=== PATIENT | male | born 1935 | race Caucasian/White ===

== ENCOUNTER 2016-06-14 12:52 | Inpatient (IN) | payer OTHER ==
[~2016-06-14] VITALS: Ht 170.2 cm; Wt 65.4 kg
--- NOTE | 2016-06-14 15:43 | ERD ---
ER Documentation Chief Complaint Date/Time DATE: 06/14/16 TIME: 15:40 Chief Complaint Per family patient fell and hit his head on a coffee table HPI 80-year-old male history of dementia, Parkinson's disease, no anticoagulants who presents with head injury. It appears the patient was trying to walk to the bathroom yesterday evening and fell hitting his head on the coffee table. The patient sustained a superficial laceration to the inner aspect of the pinna of the right ear. There was no witnessed loss of consciousness. The patient has been at his neuro baseline during this timeframe. The patient has no complaints though history is limited given his level of dementia. Unknown tetanus status. The patient presents with his daughter. ROS All systems reviewed and are negative except as per history of present illness. Medications Home Meds Reported Medications Cyanocobalamin* (Vitamin B-12*) 100 Mcg Tablet, 100 MCG PO DAILY, TAB 06/14/16 Cholecalciferol* (Vitamin D3*) 1,000 Unit Tablet, 1000 UNIT PO DAILY, TAB 06/14/16 Aspirin* (Aspirin* (EC)) 81 Mg Tablet.dr, 81 MG PO DAILY, TAB 06/14/16 Rotigotine (NEUPRO) 1 Each Patch.td24, 1 PATCH TD DAILY 06/14/16 Allergies Allergies: Coded Allergies: No Known Allergy (Unverified , 06/14/16) FmHx Family History: No diabetes Physical Exam Vitals Vital Signs Date Time Temp Pulse Resp B/P Pulse Ox O2 Delivery O2 Flow Rate FiO2 06/14/16 13:05 98.2 87 20 128/75 96 Physical Exam Airway is intact Bilateral breath sounds Strong distal pulses No obvious deficits, at neurologic baseline General: Well developed, well nourished, no acute distress, obvious dementia Head: Normocephalic, atraumatic Eyes: Pupils equally reactive, EOM intact ENT: Moist mucous membranes Neck: Supple, no lymphadenopathy, No midline tenderness, deformities, step-offs to the cervical spine, full active and passive range of motion without midline pain. Respiratory: Lungs clear bilaterally, no distress, no chest wall tenderness, no crepitus Cardiovascular: RRR, no murmurs, rubs, or gallops Abdominal: Soft, non-tender, non-distended, no peritoneal signs, pelvis is stable : Deferred MSK: No edema, no unilateral swelling, no midline tenderness deformities or step -offs to the thoracolumbar spine Neurologic: Nonverbal at baseline, limited movement of all extremities, limited exam Skin: No ecchymoses or bruising to the chest or abdomen, the patient has sustained approximately 1.5 cm laceration that is very superficial to the inner aspect of the pinna of the right ear. This is not through and through, no exposed cartilage, early wound healing is noted Psych: Normal mood Result Diagram: 06/14/16191406/14/161914 Results 24 hrs Laboratory Tests Test 06/14/16 19:15 White Blood Count 3.910^3/ul Red Blood Count 4.2610^6/ul Hemoglobin 12.3g/dl Hematocrit 37.4% Mean Corpuscular Volume 87.8fl Mean Corpuscular Hemoglobin 28.9pg Mean Corpuscular Hemoglobin Concent 32.9g/dl Red Cell Distribution Width 13.9% Platelet Count 77469^3/UL Mean Platelet Volume 10.9fl Neutrophils % 62.4% Lymphocytes % 24.9% Monocytes % 10.4% Eosinophils % 1.5% Basophils % 0.3% Nucleated Red Blood Cells % 0.0/100WBC Neutrophils # 2.510^3/ul Lymphocytes # 1.010^3/ul Monocytes # 0.410^3/ul Eosinophils # 0.110^3/ul Basophils # 0.010^3/ul Nucleated Red Blood Cells # 0.010^3/ul Prothrombin Time 13.9Sec Prothrombin Time Ratio 1.1 INR International Normalized Ratio 1.07 Activated Partial Thromboplast Time 27.5Sec Sodium Level 140mmol/L Potassium Level 3.6mmol/L Chloride Level 108mmol/L Carbon Dioxide Level 24mmol/L Anion Gap 12 Blood Urea Nitrogen 17mg/dl Creatinine 0.70mg/dl Glucose Level 82mg/dl Calcium Level 8.7mg/dl Current Medications Medications (Trade) Dose Ordered Sig/Corinna Route PRN Reason Start Time Stop Time Status Last Admin Dose Admin Diphtheria/ Tetanus/Acell Pertussis (Adacel) 0.5 ml ONCE ONCE IM* 06/14/16 16:00 06/14/16 16:01 DC 06/14/16 15:59 Lidocaine (Xylocaine 1% (Mdv) 20 ml) 20 ml ONCE ONCE SC 06/14/16 16:00 06/14/16 16:01 DC Ondansetron HCl (Zofran Inj) 4 mg BRIDGE ORDER PRN IV NAUSEA AND/OR VOMITING 06/14/16 20:00 06/15/16 19:59 Acetaminophen (Tylenol Tab) 650 mg ER BRIDGE PRN PO MILD PAIN/FEVER 06/14/16 20:00 06/15/16 19:59 Procedures/MDM EKG, MONITORS, & DIAGNOSTIC IMAGING: CT brain: IMPRESSION: 1. Moderate age related cerebral volume loss. Moderate small vessel ischemic changes. 2. Mild to moderate atherosclerotic vascular calcification. 3. Probable subdural hygroma, or chronic subdural hematoma over the left parietal convexity, up to 5 mm. Shift of midline structures to the right up to 6 mm. 4. No acute intracranial bleed. RPTAT: PP CT cervical spine: No acute fracture X-ray right shoulder: I reviewed and interpreted multiple views of the x-ray Bones: No evidence of acute fracture dislocation or subluxation Soft tissue: No evidence of foreign body PROCEDURE: Laceration Note: The patient was verbally consented prior to procedure and understands the risks , benefits, and alternatives. The patient is agreeable to procedure and has given verbal consent. Length: 1.5 cm to the right ear Irrigation: Thorough irrigation was performed with pressure is normal saline Inspection: There is no evidence of deep tissue or structural injury, no evidence of foreign bodies Anesthesia: 1% lidocaine without epinephrine approximately 3 cc Repair: Single-layer repair using 5. 0 Prolene a total of 4 sutures with good approximation A clean dressing was applied. The patient tolerated the procedure well with no complications. MEDICAL DECISION MAKING: Clear description of mechanical fall. No evidence of syncope, arrhythmia, stroke. The patient is at his neurologic baseline. The patient has a very superficial laceration to the pinna of the ear. This appears to be healing by secondary intention already. It does not approximate, no exposed cartilage. Laceration repaired as documented above. Thorough wound irrigation, tetanus update will be provided. Healing by secondary intention would be appropriate. Wound care discussion provided. Given the patient's age, limited exam CT imaging of the head and cervical spine will be obtained. The patient's daughter wants an x-ray of the right shoulder which will be obtained with full active and passive range of motion of the shoulder is noted. ER COURSE: Patient continues to be well-appearing. Wound care discussed. Suture removal discussed. Suture removal in 7-[address] imaging shows evidence of hygroma versus chronic subdural hematoma. However there is documentation of possible midline shift. I was able to speak to the neurosurgeon carbonator, Dr. José. He states that given the possible shift he would recommend inpatient observation, evaluation in the morning. Again, this is mostly subacute. Patient does not require close observation in telemetry or ICU. I kept the patient and/or family informed of laboratory and diagnostic imaging results throughout the emergency room course. DISPOSITION PLAN: Medical surgical floor admission for observation of possible subacute subdural hematoma Accepting care team and consultations: I discussed the current laboratory data, diagnostic imaging and emergency care provided. Admitting team: Dr. Morris Admitting team indication: Insurance directed, regal Consulting services: Neurosurgery, Dr. José Departure Diagnosis: Primary Impression: Laceration of right ear, external Encounter type: initial encounter Qualified Code: S01.311A - Laceration of right ear, external, initial encounter Additional Impressions: Closed head injury Encounter type: initial encounter Qualified Code: S09.90XA - Closed head injury, initial encounter Encephalopathy chronic Chronic subdural hematoma Condition: Stable ROCAEL VILLASENOR MD Jun 14, 2016 15:43
[2016-06-14] MEDS ORDERED: LIDOCAINE 1% (MDV) 20 ML INJ SC ONE (16:00)
[2016-06-14] MEDS ORDERED: DIPHTH/TET/ACEL PERTUSS (ADULT) 0.5 ML VIAL IM* ONE (16:00)
[2016-06-14] MEDS ORDERED: CYAN100T PO (16:17)
[2016-06-14] MEDS ORDERED: ROTI1PAT7 TD (16:17)
[2016-06-14] MEDS ORDERED: ASPI-664 PO (16:17)
[2016-06-14] MEDS ORDERED: CHOL100062 PO (16:17)
--- NOTE | 2016-06-14 16:46 | RADRPT ---
PROCEDURE: XR Shoulder. CLINICAL INDICATION: Shoulder pain TECHNIQUE: Three views of the right shoulder are available for review. COMPARISON: None available FINDINGS: The humeral head is located. Mild moderate AC joint arthrosis. Bone mineral density is decreased. There is no acute osseous or articular abnormality. No evidence for fracture. The visualized porti ons of the right lung are clear . IMPRESSION: 1. No acute osseous abnormality. 2. Mild to moderate AC joint arthrosis. RPTAT: QQ .Joe Ellis MD, MD Date Time Electronically viewed and signed by .Joe Ellis MD, MD on 06/14/2016 16:46 .d/
--- NOTE | 2016-06-14 18:23 | RADRPT ---
PROCEDURE: CT thoracic Spine without contrast. CLINICAL INDICATION: Trauma, pain TECHNIQUE: Multiple axial images through the thoracic spine with coronal and sagittal reformats we re obtained without contrast. The calculated radiation dose measures 955 mGy centimeters. The CTDI m easures 22 mGy COMPARISON: No prior studies are available for comparison. FINDINGS: There is a mild thoracic dextroscoliosis. There is exaggeration of the normal upper thoracic kyphos is. 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 There is no bone destruction or sclerosis. There is no dislocation or fracture. There is mild to moderate disk space narrowing through the upper and mid thoracic spine. There is a minimal left paracentral disk osteophyte complex at T8-T9. There are minimal disk osteophyte compl exes at T6-T7 and T7-T8. There are minimal facet hypertrophic changes through the mid and lower tho racic spine.. There is no significant bony central canal stenosis. There is mild appearing right fo raminal narrowing at T4-T5. There is bibasilar atelectasis. There are hepatic and renal cysts. IMPRESSION: 1. Increased upper thoracic kyphosis and mild dextroscoliosis. 2. No visualized acute fracture or dislocation. 3. Minimal disk osteophyte complexes in the mid thoracic spine. Minimal facet hypertrophy in the m id and lower thoracic spine. 4. No significant bony central canal stenosis. Mild appearing right foraminal narrowing at T4-T5. RPTAT: PP .Juan Glez MD, Date Time Electronically viewed and signed by .Juan Glez MD, MD on 06/14/2016 18:23 .T/
--- NOTE | 2016-06-14 18:34 | RADRPT ---
PROCEDURE: CT Head without contrast. CLINICAL INDICATION: Trauma, pain TECHNIQUE: Continuous axial CT images were obtained from the base of skull to the vertex. No cont rast was administered. The calculated radiation dose measures 810 mGy centimeters. The CTDI measures 45 mGy COMPARISON: No prior studies are available for comparison. FINDINGS: There is moderate diffuse cerebral volume loss. The ventricles are symmetric and normal in configur ation. Midline structures are shifted to the right up to 6 mm. There is medial displacement of cortical ve ins awake of the calvarium over the left parietal convexity, likely reflecting a small subdural hygr carmen, or chronic hematoma. This measures up to 5 mm. There are scattered areas of decreased attenuation in the supratentorial white matter, consistent wi th moderate small vessel ischemic changes. There is mild to moderate atherosclerotic vascular calcif ication. The bony calvarium is intact. The orbital soft tissue contents are unremarkable. Paranasal sinuses appear clear. IMPRESSION: 1. Moderate age related cerebral volume loss. Moderate small vessel ischemic changes. 2. Mild to moderate atherosclerotic vascular calcification. 3. Probable subdural hygroma, or chronic subdural hematoma over the left parietal convexity, up to 5 mm. Shift of midline structures to the right up to 6 mm. 4. No acute intracranial bleed. RPTAT: PP .Juan Glez MD, Date Time Electronically viewed and signed by .Juan Glez MD, on 06/14/2016 18:34 .T/
[2016-06-14 19:26] LABS: ADD SCAN DIFF NO
[2016-06-14 19:28] LABS: BASOPHILS % 0.3 % (0.0-2.0); EOSINOPHILS # 0.1 10^3/ul (0.0-0.5); EOSINOPHILS % 1.5 % (0.0-7.0); HEMATOCRIT 37.4 % (42.0-52.0); HEMOGLOBIN 12.3 g/dl (14.0-18.0); LYMPHOCYTES % 24.9 % (15.0-51.0); MEAN CORPUSCULAR HEMOGLOBIN 28.9 pg (29.0-33.0); MEAN CORPUSCULAR HGB CONC 32.9 g/dl (32.0-37.0); MEAN CORPUSCULAR VOLUME 87.8 fl (82.0-101.0); MEAN PLATELET VOLUME 10.9 fl (7.4-10.4); MONOCYTE # 0.4 10^3/ul (0.3-0.9); MONOCYTES % 10.4 % (0.0-11.0); NEUTROPHIL # 2.5 10^3/ul (1.6-7.5); NEUTROPHILS % 62.4 % (39.0-77.0); PLATELET COUNT 134 10^3/UL (140-415); RED BLOOD COUNT 4.26 10^6/ul (4.70-6.10); RED CELL DISTRIBUTION WIDTH 13.9 % (11.5-14.5); WHITE BLOOD COUNT 3.9 10^3/ul (4.8-10.8)
[2016-06-14 19:38] LABS: POTASSIUM 3.6 mmol/L (3.5-5.1)
[2016-06-14 19:40] LABS: INR 1.07; PROTIME 13.9 Sec (12.2-14.2); PT RATIO 1.1
[2016-06-14 19:41] LABS: CREATININE 0.7 mg/dl (0.61-1.24); PARTIAL THROMBOPLASTIN TIME 27.5 Sec (25.0-35.0)
[2016-06-14 19:42] LABS: CALCIUM 8.7 mg/dl (8.4-10.2)
[2016-06-14] MEDS ORDERED: ACETAMINOPHEN 325 MG TAB PO PRN ×2 (20:00→23:00)
[2016-06-14] MEDS ORDERED: ONDANSETRON 4 MG INJ IV PRN (20:00)
[2016-06-14 20:12] VITALS: PULSE 76
[2016-06-14 21:58] VITALS: Ht 170.2 cm; Wt 65.4 kg
[2016-06-14] MEDS ORDERED: HYDROCODONE/APAP (5/325) TAB PO PRN (23:00)
[2016-06-14] MEDS ORDERED: ONDANSETRON 4 MG TAB PO PRN (23:00)
[2016-06-14] MEDS ORDERED: NACL 0.9% 3 ML SYG IV SCH (23:00)
[2016-06-14] MEDS ORDERED: DOCUSATE SODIUM 100 MG CAP PO PRN (23:00)
[2016-06-14] MEDS: FAMOTIDINE 20 MG TAB PO SCH (23:25)
[2016-06-15 05:30] LABS: ADD SCAN DIFF NO
[2016-06-15 05:44] LABS: POTASSIUM 3.3 mmol/L (3.5-5.1)
[2016-06-15 05:45] LABS: EOSINOPHILS # 0.1 10^3/ul (0.0-0.5); EOSINOPHILS % 2.4 % (0.0-7.0); HEMOGLOBIN 12.6 g/dl (14.0-18.0); LYMPHOCYTES # 0.9 10^3/ul (0.8-2.9); LYMPHOCYTES % 27.5 % (15.0-51.0); MEAN CORPUSCULAR HEMOGLOBIN 28.6 pg (29.0-33.0); MEAN CORPUSCULAR HGB CONC 33.2 g/dl (32.0-37.0); MEAN CORPUSCULAR VOLUME 86.4 fl (82.0-101.0); MEAN PLATELET VOLUME 10.6 fl (7.4-10.4); MONOCYTE # 0.3 10^3/ul (0.3-0.9); MONOCYTES % 9.7 % (0.0-11.0); NEUTROPHILS % 60.1 % (39.0-77.0); PLATELET COUNT 122 10^3/UL (140-415); RED CELL DISTRIBUTION WIDTH 13.8 % (11.5-14.5); WHITE BLOOD COUNT 3.3 10^3/ul (4.8-10.8)
[2016-06-15 05:47] LABS: CREATININE 0.76 mg/dl (0.61-1.24)
[2016-06-15 05:48] LABS: CALCIUM 8.8 mg/dl (8.4-10.2)
[2016-06-15 05:51] LABS: PHOSPHORUS 2.9 mg/dl (2.5-4.9)
[2016-06-15] MEDS ORDERED: POTASSIUM CHLORIDE (SR) 20 MEQ TAB PO STA (06:32)
[2016-06-15 06:50] LABS: T3 UPTAKE 38.6 % (23.5-40.5)
[2016-06-15 07:19] VITALS: BP 117/74; RESP 18
[2016-06-15] MEDS: [UNRECOGNIZED DRUG - OTHER] XX SCH ×3 (07:49→23:26)
[2016-06-15] MEDS: FAMOTIDINE 20 MG TAB PO SCH ×2 (08:39→20:21)
[2016-06-15] MEDS: CYANOCOBALAMIN 100 MCG TAB PO SCH (08:39)
[2016-06-15] MEDS: CHOLECALCIFEROL 1,000 UNIT TAB PO SCH (08:40)
[2016-06-15] MEDS ORDERED: ROTIGOTINE TD SCH (09:00)
[2016-06-15] MEDS ORDERED: ASPIRIN (EC) 81 MG TAB PO SCH (09:00)
[2016-06-15 13:53] LABS: ADD SCAN DIFF NO
[2016-06-15 14:01] LABS: BASOPHILS % 0.3 % (0.0-2.0); EOSINOPHILS # 0.1 10^3/ul (0.0-0.5); EOSINOPHILS % 1.6 % (0.0-7.0); HEMATOCRIT 36.3 % (42.0-52.0); HEMOGLOBIN 12.2 g/dl (14.0-18.0); LYMPHOCYTES # 0.7 10^3/ul (0.8-2.9); LYMPHOCYTES % 22.3 % (15.0-51.0); MEAN CORPUSCULAR HEMOGLOBIN 28.7 pg (29.0-33.0); MEAN CORPUSCULAR HGB CONC 33.6 g/dl (32.0-37.0); MEAN CORPUSCULAR VOLUME 85.4 fl (82.0-101.0); MEAN PLATELET VOLUME 10.7 fl (7.4-10.4); MONOCYTE # 0.3 10^3/ul (0.3-0.9); MONOCYTES % 9.2 % (0.0-11.0); NEUTROPHILS % 66.3 % (39.0-77.0); PLATELET COUNT 127 10^3/UL (140-415); RED BLOOD COUNT 4.25 10^6/ul (4.70-6.10); RED CELL DISTRIBUTION WIDTH 13.4 % (11.5-14.5); WHITE BLOOD COUNT 3.1 10^3/ul (4.8-10.8)
[2016-06-15 14:04] LABS: POTASSIUM 3.7 mmol/L (3.5-5.1)
[2016-06-15 14:06] LABS: CREATININE 0.77 mg/dl (0.61-1.24)
[2016-06-15 14:07] LABS: CALCIUM 8.7 mg/dl (8.4-10.2)
--- NOTE | 2016-06-15 14:17 | HP ---
DATE OF ADMISSION: 06/14/2016 CHIEF COMPLAINT ON ADMISSION: Status post fall with possible head injury. HISTORY OF PRESENT ILLNESS: This is a 80-year-old male with dementia, Parkinson's disease, benign p rostatic hypertrophy and apparently has been having episodes of fall at home, increasingly unsteady, needs some assistance with ambulation, but not even able to use a walker because he is having a tiffanie d time coordinating, who was brought into the emergency department by family after the patient fell 24 hours prior. According to the daughter at bedside, the patient did fall 24 hours prior to presen tation and did hit his head on the coffee table. She reports that he has fallen multiple times befo re, but never had a head injury that they witnessed. Apparently, the fall was mechanical. The marlene ent was attempting to ambulate with the help of his 81-year-old and either he was too heavy for her or he did lose his balance, it is unclear, but the patient ended up falling. He did not lose c onsciousness. In the emergency department, he had a CAT scan of the brain that showed a probable hidalgo bdural hygroma or chronic subdural hematoma over the left parietal convexity, shift of midline struc ture to right up to 6 mm. No signs of acute intracranial bleed. Because of the midline shift, they talked to neurosurgery, Dr. José, who recommended for the patient to be kept overnight for obser vation. Given the fact that the family is reporting loss of balance versus gait abnormalities, we w ill obtain an MRI to complete the workup, but most likely his gait abnormalities may be related to t he Parkinson's. He is also noted to have a foul-smelling urine. Therefore, UA and urine culture ball ve been sent. Otherwise, the patient himself is mostly nonverbal, and he is being fed by the [facility] at this point. Per daughter, there is no report of fevers, chills, coughing, diarrhea, constipat ion. The patient's mental status is very close to his unfortunate recent baseline. Physical therap y has been ordered for safety evaluation. ALLERGIES: NO KNOWN ALLERGIES. PAST MEDICAL HISTORY: 1. Dementia. 2. Parkinson's disease. 3. Benign prostatic hypertrophy. PAST SURGICAL HISTORY: The patient had remotely abdominal versus inguinal hernia repair. SOCIAL HISTORY: The patient lives at home with his . No history of smoking or alcohol use. REVIEW OF SYSTEMS: Unable to obtain from patient. Most of the information obtained from daughter a t bedside. OUTPATIENT MEDICATIONS: 1. Aspirin 81 mg p.o. daily. 2. Rotigotine 1 patch transdermally daily. 3. Vitamin D3 1000 units p.o. daily. 4. Vitamin B12 100 mcg p.o. daily. PHYSICAL EXAMINATION: VITAL SIGNS: Temperature is 98.4, heart rate of 78, respiratory rate of 18, blood pressure is 117/7 4. The patient is satting 96% on room air. GENERAL: He is alert and oriented x2 at least. He is nonverbal currently, but recognizes family me mbers and follows simple commands. HEENT: Pupils are equally round and reactive to light. Extraocular muscles are intact. Anicteric sclerae. He is noted to have a laceration to his right ear. This is post fall. Sutures are in ry ce. HEART: Regular rate and rhythm. No murmur, rubs, or gallops. LUNGS: Clear to auscultation bilaterally. ABDOMEN: Soft, nontender, nondistended. Bowel sounds are present. EXTREMITIES: No edema, clubbing, or cyanosis. NEUROLOGIC: Very limited exam. The patient is currently in bed, having lunch. We will order physi becky therapy. LABORATORY DATA: White blood cell count is 3.3, hemoglobin 12.6, hematocrit 38.0, platelet count of 122. Chemistry with a sodium of 142, potassium 3.3, chloride 107, bicarbonate 27, BUN 13, creatini ne 0.76, glucose of 99, calcium of 8.8, phosphorus 2.9, magnesium 2.0. Thyroid function testing wit hin normal. INR is 1.07, PT 13.9, PTT 27.5. RADIOLOGICAL DATA: 1. CAT scan of the brain did show no acute intracranial bleed, probable subdural hygroma or chronic subdural hematoma over the left parietal convexity up to 5 mm with a shift of the midline structure to the right up to 6 mL. CAT scan of the thoracic spine shows no acute findings. No acute fractur e or dislocation. 2. X-ray shoulder, right, shows no acute osseous abnormality, mild to moderate AC joint arthrosis. EKG was not done. ASSESSMENT AND PLAN: This is a 80-year-old male with: 1. Status post fall with findings of a subdural hematoma that actually seems to be chronic, possibl y even hygroma at this point. Likely resultant of this fall, but due to the finding of a midline sh ift, apparently neurosurgery, Dr. José, was consulted in the emergency department, has recommende d for observation on med/surg. MRI of the brain has been ordered for today and will follow up with Dr. José when it comes to discharge planning. Physical therapy has been ordered for safety. Con geenaue to monitor. I will discontinue his aspirin for now. Benign prostatic hypertrophy. Continue outpatient medication. However, I do not see anything listed. Will check a UA and urine culture ba sed on the report of foul-smelling urine. 2. Parkinson's disease. Continue outpatient medications. 3. Dementia. Continue reorientation according to the family, the patient seems to be close to base line and will also check an MRI of the brain and also physical therapy evaluation for safety. 4. Prophylaxis. SCDs to lower extremities for DVT prophylaxis and Pepcid for GI prophylaxis. DISPOSITION: The patient is to be kept on observation. MRI of the brain is pending. Additional wo rkup will be done as needed and discharge planning for tomorrow morning at the latest. Dictated By: HARMAN DORSEY/ROSS Conf#: [id number] DID#: [id number]
--- NOTE | 2016-06-15 16:25 | RADRPT ---
PROCEDURE: MRI Brain without contrast. CLINICAL INDICATION: Chronic head injury with weakness TECHNIQUE: An MRI of the brain was performed on a high resolution hi-definition 3.0 Ksenia MRI scan ner utilizing the following sequences: Sagittal and axial T1 weighted, axial T2 weighted, axial T2 G RE axial diffusion weighted with ADC mapping, coronal GRE, and axial FLAIR. COMPARISON: CT brain 06/14/2016 FINDINGS: Motion artifact is present which degrades the optimal quality of the study. The scalp and calvarium are normal. The visualized orbits are normal. The bilateral paranasal sinus es, mastoid air cells, and middle ear cavities are clear. Again noted is a chronic CSF isointense on all sequences left holohemispheric subdural hematoma or hygroma. This measures a maximum thickne ss of 6 mm. 8 mm left to right midline shift is present. Prominence of the ventricles, sulci and c isterns are noted compatible with moderate diffuse volume loss. On the FLAIR and T2-weighted sequen la, punctate foci of hyperintensity are present in the bilateral centrum semiovale and periventricu lar white matter, the left cerebral peduncle all compatible with mild chronic microvascular ischemic disease. No evidence for acute hemorrhage is present. No diffusion weighted abnormalities are seen to suggest the presence of acute ischemia or recent infarct. No hypointense signal abnormalities a re seen on the GRE images to suggest the presence of blood degradation products. Normal flow voids are visible in the proximal intracranial arteries and dural sinuses, indicating patency. IMPRESSION: 1. No evidence for acute infarcts, hemorrhage, or acute intracranial pathology. 2. Chronic 6 mm left holohemispheric subdural hygroma or hematoma. 3. Runh-tj-zenac 8 mm midline transcerebral herniation 4. Mild chronic microvascular ischemic disease and moderate diffuse volume loss. RPTAT: HDC .Felicita Olguin MD, MD Date Time Electronically viewed and signed by .Felicita Olguin MD, MD on 06/15/2016 16:25 .C/
--- NOTE | 2016-06-15 17:29 | QN ---
Documentation Comment I was asked to consult on this patient by Dr. Obrien in the ED for chronic hygroma and midline shift. I reviewed the CT and MRI and do not see any evidence of any acute intracranial pathology, nor is there significant chronic hygroma or subdural. There is pronounced atrophy. The patient is demented at baseline and Parkinsonian. No active neurosurgical issues. No indications for neurosurgical intervention and no contraindication to discharge home or other placement as determined by primary team. I recommend neurology evaluation if there are any other 'neuro' questions. Thank you. SYED LEE MD Jun 15, 2016 17:29
[2016-06-15 19:00] VITALS: BP 120/68; RESP 18
[2016-06-15] MEDS: BRIMONIDINE 0.2%-TIMOLOL 0.5% 5ML OPH BOTH EYES SCH (20:21)
[2016-06-16 01:11] LABS: ADD UMIC NO; URINE BILIRUBIN (Dip) NEGATIVE (NEGATIVE); URINE BLOOD (Dip) NEGATIVE (NEGATIVE); URINE COLOR LT. YELLOW (YELLOW); URINE GLUCOSE (Dip) NEGATIVE (NEGATIVE); URINE KETONES (Dip) NEGATIVE (NEGATIVE); URINE LEUKOCYTE ESTERASE (Dip) NEGATIVE (NEGATIVE); URINE NITRITE (Dip) NEGATIVE (NEGATIVE); URINE TOTAL PROTEIN (Dip) NEGATIVE (NEGATIVE); URINE UROBILINOGEN (Dip) 1.0 E.U./dL (0.1-1.0)
[2016-06-16 07:16] LABS: POTASSIUM 3.7 mmol/L (3.5-5.1)
[2016-06-16 07:18] LABS: CREATININE 0.73 mg/dl (0.61-1.24)
[2016-06-16 07:19] LABS: CALCIUM 8.9 mg/dl (8.4-10.2)
[2016-06-16 07:27] VITALS: BP 119/78; RESP 22
[2016-06-16] MEDS: [UNRECOGNIZED DRUG - OTHER] XX SCH (08:00)
[2016-06-16] MEDS: CHOLECALCIFEROL 1,000 UNIT TAB PO SCH (09:33)
[2016-06-16] MEDS: CYANOCOBALAMIN 100 MCG TAB PO SCH (09:33)
[2016-06-16] MEDS: FAMOTIDINE 20 MG TAB PO SCH ×2 (09:33→20:06)
[2016-06-16] MEDS: BRIMONIDINE 0.2%-TIMOLOL 0.5% 5ML OPH BOTH EYES SCH ×2 (09:33→20:07)
--- NOTE | 2016-06-16 12:11 | PN ---
Date/Time of Note Date/Time of Note DATE: 06/16/16 TIME: 11:45 Assessment/Plan VTE Prophylaxis VTE Prophylaxis Intervention: SCD's Lines/Catheters IV [facility] Saline Lock Assessment/Plan Assessment/Plan 80-year-old male with: 1. Status post fall with findings of a subdural hematoma that actually is chronic, Appreciate recommendations from Dr José, no acute findings or need for neurosurgical intervention MRI of the brain stable Per Physical therapy, SNF placement recommended Continue outpatient meds for Parkinson's UA negative 2. Parkinson's disease. Continue outpatient medications. 3. Dementia. Continue reorientation according to the family, the patient seems to be close to baseline MRI of the brain with no acute findings. Prophylaxis. SCDs to lower extremities for DVT prophylaxis and Pepcid for GI prophylaxis. DISPOSITION: Ok to discharge per Neurosurgery, PT eval done and recommended SNF placement for PT and also ST as needed, will d/c to SNF today Subjective 24 Hr Interval Summary Free Text/Dictation Patient remains lethargic Need to resume Parkinson's meds MRI stable and plan for SNF today for PT/ST Exam/Review of Systems Vital Signs Vitals Vital Signs Date Time Temp Pulse Resp B/P Pulse Ox O2 Delivery O2 Flow Rate FiO2 06/16/16 07:27 97.9 60 22 119/78 92 06/14/16 20:12 Room Air Intake and Output 06/15/16 06/15/16 06/16/16 15:00 23:00 07:00 Intake Total 940 ml 340 ml Balance 940 ml 340 ml Exam Constitutional: alert, frail, non-verbal Respiratory: diminished breath sounds (left lung ) Cardiovascular: nl pulses, regular rate and rhythm Gastrointestinal: non-tender, other (G tube in place ), soft Musculoskeletal: nl extremities to inspection, other (no edema, clu) Neurological: 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 intact, lethargic, other (non verbal ) Results Result Diagram: 06/15/16 1340 06/16/16 0455 Results 24 hrs Laboratory Tests Test 06/15/16 13:40 06/15/16 23:45 06/16/16 04:55 White Blood Count 3.1 L Red Blood Count 4.25 L Hemoglobin 12.2 L Hematocrit 36.3 L Mean Corpuscular Volume 85.4 Mean Corpuscular Hemoglobin 28.7 L Mean Corpuscular Hemoglobin Concent 33.6 Red Cell Distribution Width 13.4 Platelet Count 127 L Mean Platelet Volume 10.7 H Neutrophils % 66.3 Lymphocytes % 22.3 Monocytes % 9.2 Eosinophils % 1.6 Basophils % 0.3 Nucleated Red Blood Cells % 0.0 Neutrophils # 2.0 Lymphocytes # 0.7 L Monocytes # 0.3 Eosinophils # 0.1 Basophils # 0.0 Nucleated Red Blood Cells # 0.0 Sodium Level 138 136 Potassium Level 3.7 3.7 Chloride Level 105 105 Carbon Dioxide Level 25 24 Anion Gap 12 11 Blood Urea Nitrogen 11 9 Creatinine 0.77 0.73 Glucose Level 138 101 Calcium Level 8.7 8.9 Magnesium Level 2.0 2.0 Urine Color LT. YELLOW Urine Clarity CLEAR Urine pH 7.0 Urine Specific [place] 1.010 Urine Ketones NEGATIVE Urine Nitrite NEGATIVE Urine Bilirubin NEGATIVE Urine Urobilinogen 1.0 E.U./dL Urine Leukocyte Esterase NEGATIVE Urine Hemoglobin NEGATIVE Urine Glucose NEGATIVE Urine Total Protein NEGATIVE Medications Medications Current Medications Ondansetron HCl (Zofran Tab) 4 mg Q6H PRN PO NAUSEA AND/OR VOMITING; Start at 23:00 Acetaminophen (Tylenol Tab) 650 mg Q6H PRN PO PAIN LEVEL 1-3 OR FEVER; Start at 23:00 Acetaminophen/ Hydrocodone Bitart ([place] (5/325)) 1 tab Q6H PRN PO MODERATE PAIN LEVEL 4-6; Start 06/14/16 at 23:00 Docusate Sodium (Colace) 100 mg Q12H PRN PO CONSTIPATION; Start 06/14/16 at 23: 00 Famotidine (Pepcid) 20 mg Q12 PO Last administered on 06/16/16 09:33; Admin Dose 20 MG; Start 06/14/16 at 23:00 Cholecalciferol (Vitamin D) 1,000 unit DAILY PO Last administered on 06/16/16 09:33; Admin Dose 1,000 UNIT; Start 06/15/16 at 09:00 Cyanocobalamin (Vitamin B12) 100 mcg DAILY PO Last administered on 06/16/16 09 :33; Admin Dose 100 MCG; Start 06/15/16 at 09:00 Miscellaneous Information 1 patch DAILY TD ; Start 06/15/16 at 09:00; Status UNV Miscellaneous Information (*Order Clarification Bulletin) Rotigotine (Neupro) 1 PATCH, PLE... Q8H XX ; Start 06/15/16 at 08:00 Brimonidine/ Timolol (Combigan Oph) 1 drop BID BOTH EYES Last administered on 09:33; Admin Dose 1 DROP; Start 06/15/16 at 21:00 HARMAN GASTELUM Jun 16, 2016 11:59
--- NOTE | 2016-06-16 12:13 | PDOCDIS ---
Discharge Instructions CONDITION Patient Condition: Stable ACTIVITY: Activity Restrictions: Slowly Increase Activity FOLLOW UP/APPOINTMENTS Appointments Follow up with outpatient Neurologist within [address] at [facility] HARMAN GASTELUM Jun 16, 2016 12:13
[2016-06-16] MEDS: NEUPRO TOP SCH (12:28)
[2016-06-16] MEDS ORDERED: RIVASTIGMINE 9.5 MG/24 HR TRANSDERM SCH (13:00)
[2016-06-16 20:00] VITALS: BP 130/76; RESP 20
[2016-06-17 07:29] VITALS: BP 119/73; RESP 18
[2016-06-17] MEDS: CHOLECALCIFEROL 1,000 UNIT TAB PO SCH (09:52)
[2016-06-17] MEDS: FAMOTIDINE 20 MG TAB PO SCH (09:52)
[2016-06-17] MEDS: CYANOCOBALAMIN 100 MCG TAB PO SCH (09:52)
[2016-06-17] MEDS: NEUPRO TOP SCH (09:52)
[2016-06-17] MEDS: BRIMONIDINE 0.2%-TIMOLOL 0.5% 5ML OPH BOTH EYES SCH (09:53)
--- NOTE | 2016-06-17 14:27 | PN ---
Date/Time of Note Date/Time of Note DATE: 06/17/16 TIME: 14:18 Assessment/Plan VTE Prophylaxis VTE Prophylaxis Intervention: SCD's Lines/Catheters IV Catheter Type (from Nrsg): Saline Lock Assessment/Plan Assessment/Plan 80-year-old male with: 1. Status post fall with findings of a subdural hematoma that actually is chronic, Appreciate recommendations from Dr José, no acute findings or need for neurosurgical intervention MRI of the brain stable Per Physical therapy, SNF placement recommended Continue outpatient meds for Parkinson's UA negative 2. Parkinson's disease. Continue Exelon Patch. 3. Dementia. Continue reorientation according to the family, the patient seems to be close to baseline and also continue patch MRI of the brain with no acute findings. Prophylaxis. SCDs to lower extremities for DVT prophylaxis and Pepcid for GI prophylaxis. DISPOSITION: Ok to discharge per Neurosurgery, PT eval done and recommended SNF placement for PT and also ST as needed, D/c to SNF today Subjective 24 Hr Interval Summary Free Text/Dictation Patient much more awake and doing better today No further complaints, still needs PT/ST ongoing so still strong recommendation to discharge to SNF Exam/Review of Systems Vital Signs Vitals Vital Signs Date Time Temp Pulse Resp B/P Pulse Ox O2 Delivery O2 Flow Rate FiO2 06/17/16 07:29 98.9 69 18 119/73 94 06/14/16 20:12 Room Air Intake and Output 06/16/16 06/16/16 06/17/16 15:00 23:00 07:00 Intake Total 960 ml 120 ml Balance 960 ml 120 ml Exam Constitutional: alert, frail, other (minimally verbal ) Respiratory: clear to auscultation, normal air movement Cardiovascular: nl pulses, regular rate and rhythm Gastrointestinal: non-tender, soft Musculoskeletal: nl extremities to inspection Extremities: normal pulses, other (no edema, clubbing or cyanosis ) Neurological: 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 II-XII intact, other (generalised weakness ) Results Result Diagram: 06/15/16 1340 06/16/16 0455 Medications Medications Current Medications Ondansetron HCl (Zofran Tab) 4 mg Q6H PRN PO NAUSEA AND/OR VOMITING; Start at 23:00 Acetaminophen (Tylenol Tab) 650 mg Q6H PRN PO PAIN LEVEL 1-3 OR FEVER; Start at 23:00 Acetaminophen/ Hydrocodone Bitart ([place] (5/325)) 1 tab Q6H PRN PO MODERATE PAIN LEVEL 4-6; Start 06/14/16 at 23:00 Docusate Sodium (Colace) 100 mg Q12H PRN PO CONSTIPATION; Start 06/14/16 at 23: 00 Famotidine (Pepcid) 20 mg Q12 PO Last administered on 06/17/16 09:52; Admin Dose 20 MG; Start 06/14/16 at 23:00 Cholecalciferol (Vitamin D) 1,000 unit DAILY PO Last administered on 06/17/16 09:52; Admin Dose 1,000 UNIT; Start 06/15/16 at 09:00 Cyanocobalamin (Vitamin B12) 100 mcg DAILY PO Last administered on 06/17/16 09 :52; Admin Dose 100 MCG; Start 06/15/16 at 09:00 Brimonidine/ Timolol (Combigan Oph) 1 drop BID BOTH EYES Last administered on 09:53; Admin Dose 1 DROP; Start 06/15/16 at 21:00 Non-Formulary Medication 1 ea DAILY TOP Last administered on 06/17/16 09:52; Admin Dose 1 EA; Start 06/16/16 at 13:00 HARMAN GASTELUM Jun 17, 2016 14:27
[2016-06-17] MEDS ORDERED: RIVASTIGMINE 9.5 MG/24 HR TRANSDERM SCH (16:00)
== END 2016-06-17 18:30 | DRG 66 ==
LOC: E/R 12:52 → MS2 19:46 → OBSVTOIN 06-17 15:05
PROVIDERS: ADMIT Internal Medicine; ATTEND Internal Medicine
DX: I62.03 Nontraumatic chronic subdural hemorrhage (principal); G20 Parkinson's disease; F02.80 Dementia in other diseases classified elsewhere, unspecified severity, without behavioral disturbance, psychotic disturbance, mood disturbance, and anxiety; N40.0 Benign prostatic hyperplasia without lower urinary tract symptoms; Z91.81 History of falling
CPT/HCPCS: 70450; 70551; 72128; 80048; 81003; 83735; 84100; 84436; 84479; 85025; 85610; 85730; 87086; 90471; 90715; 92526; 92610; 97163; G0378; J3420